=== PATIENT | female | born 1945 | race Caucasian/White ===

== ENCOUNTER 2019-07-15 15:05 | Emergency (ER) | payer MEDICARE, SELFPAY ==
--- NOTE | ~2019-07-15 | CT_ITS ---
EXAMINATION: CT lumbar spine wo con DATE: 07/15/2019 17:18 INDICATION: Low back pain post fall TECHNIQUE: Computed tomography (CT) of the lumbar spine was performed without intravenous contrast. A utomated exposure control and iterative reconstruction technique were employed. The dose-length produ ct was 608.03 mGy-cm. COMPARISON: Lumbar spine radiographs dated 03/01/2015 FINDINGS: Mild lumbar levocurvature. 1-2 mm retrolisthesis T12 on L1, L1 and L2 and L2 on L3. Vertebral body he ights are normal. No fracture. Moderate disc height loss at T11-T12 and at the right side of T12-L1. Mild disc height loss at L1-L2 and L4-L5. Bilateral adnexal cysts measuring 2.9 cm on the right and 1 .5 cm on the left. Paravertebral soft tissues are otherwise unremarkable. The following disc levels a re specifically discussed: T11-T12: Disc is bulging. There is mild right and severe left facet joint osteoarthritis. There is mi ld left neural foraminal stenosis. There is minimal central canal stenosis. T12-L1: Disc is bulging. There is mild bilateral facet joint osteoarthritis. There is mild right neur al foraminal stenosis. There is mild central canal stenosis. L1-L2: Disc is bulging. There is mild left and moderate right facet joint osteoarthritis. There is mi nimal right neural foraminal stenosis. There is mild central canal stenosis. L2-L3: Disc is bulging. There is hypertrophy of the ligamentum flavum. There is mild right and modera te left facet joint osteoarthritis. There is mild bilateral neural foraminal stenosis. There is mild to moderate central canal stenosis. L3-L4: Disc is bulging. There is hypertrophy of the ligamentum flavum. There is severe bilateral fac et joint osteoarthritis. There is mild bilateral neural foraminal stenosis. There is moderate central canal stenosis. L4-L5: Disc is bulging. There is hypertrophy of the ligamentum flavum. There is moderate right and se irasema left facet joint osteoarthritis. There is moderate bilateral neural foraminal stenosis. There is moderate central canal stenosis. L5-S1: Disc is bulging. There is severe bilateral facet joint osteoarthritis. There is no neural fora choco stenosis. There is mild central canal stenosis. IMPRESSION: 1. Mild lumbar levocurvature with moderate spondylosis. No acute osseous abnormality. Reviewed, dictated and finalized at location A. TING MACHINE OPERATOR HELPER IMPRESSION: 1. Mild lumbar levocurvature with moderate spondylosis. No acute osseous abnorm ality.
--- NOTE | ~2019-07-15 | CT_ITS ---
EXAMINATION: CT brain wo con, CT cervical spine wo con EXAM DATE: 07/15/2019 16:07 (accession [id number]), 07/15/2019 16:08 (accession [id number]) INDICATION: Head injury, fell from ladder. TECHNIQUE: Spiral CT of the head was performed without contrast. Axial, coronal and sagittal images were reviewed. Spiral CT of the cervical spine was performed without contrast. Axial images were rev iewed. Coronal and sagittal reformatted images were also reviewed. The dose-length product (DLP) fo r this examination was 605.33 (accession [id number]), 165.43 (accession [id number]) mGy-cm. The exposure was tailored according to patient size, and iterative reconstruction (ASIR) was used as additional dose reduction technique. Comparison is made to prior examination from 04/03/2014. FINDINGS: HEAD CT: There is no acute intraparenchymal hemorrhage. No evidence of intraparenchymal brain mass l esion. No evidence of acute infarction. There is mild periventricular and subcortical hypodensity, n onspecific but probably related to small vessel ischemic disease. There is moderate prominence of t he sulci and ventricles related to cerebral atrophy. There is intracranial carotid arteriosclerosis . There is no mass effect or midline shift. There is no obstructive hydrocephalus suspected. There are no extra-axial collections. There are no acute calvarial fractures. The orbits are unremarkabl e. Large posterior vertex scalp contusion, hematoma, laceration. The visualized sinuses and mastoid air cells are well aerated. CERVICAL CT: There is no evidence of acute cervical fracture. The odontoid process is intact. Pre- dens space is normal. Prevertebral soft tissue is normal. There are no soft tissue abnormalities id entified. There is no disc space widening or traumatic vertebral body subluxation suspected. Modera te disc disease C5-6 and 6-7. Mild to moderate cervical arthropathy. A detailed level by level evalu ation of spondylosis can be added as addendum if requested. IMPRESSION: 1. No acute intracranial or cervical findings. 2. Large posterior vertex scalp contusion, hematoma. Overlying laceration. 3. Chronic age related findings. Reviewed, dictated and finalized at location B. ITY ASSURANCE TESTER IMPRESSION: 1. No acute intracranial or cervical findings. 2. Large posterior vertex scalp contusion, hematoma. Overlying laceration. 3. Chronic age related findings.
[2019-07-15 15:08] VITALS: BP 137/109; PULSE 70; RESP 18; TEMP 36.2; O2SAT 99
--- NOTE | 2019-07-15 16:23 | ED.HEATRA ---
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 She states that she was chagning a light bulb outside. Pt states that she was coming down the ladder and she misstepped and fell down the last 2-3 steps. Pt states that she fell backwards and hit her head and lower back. Pt was able to ambulate after the fall. Pt also reports a headache and lower back pain, but denies syncope, neck pain, vomiting, and visual changes. Complaint: head injury Onset (ago): minute(s) Mechanism of Injury: fall Place: outdoors Loss of Consciousness: no Location of injury: occipital Radiation: none Other Injuries: none Associated symptoms: other (headache, lower back pain) Related Data Allergies Allergy/AdvReac Type Severity Reaction Status Date / Time No Known Allergies Allergy Verified 07/15/19 15:51 Review of Systems Review of Systems: All systems reviewed & are unremarkable except as noted in HPI and below Eyes: Eyes: Denies change in vision Gastrointestinal: Gastrointestinal: Denies vomiting Musculoskeletal: Musculoskeletal: Reports back pain (lower) and Denies neck pain Neurologic: Denies syncope and Reports headache(s) PMFSH Past Medical History Medical History (Updated 07/15/19 @ 18:09 by Sheng Platt MD) Anxiety Arm fracture, left Arthritis Depression Diabetes mellitus GERD (gastroesophageal reflux disease) HLD (hyperlipidemia) HTN (hypertension) Hypothyroid Right wrist fracture Seasonal allergies Sleep apnea with use of continuous positive airway pressure (CPAP) Subacromial impingement of right shoulder Surgical History Surgical History Hx of appendectomy Social History Social History Smoking status: Former smoker Smoking end date: 05/21/69 Alcohol intake: never Gender identity (if verbalized by the patient): Female Exam Const: General: healthy appearing, no acute distress and well developed Nutritional Appearance: well nourished Orientation/consciousness: patient oriented x3 (alert) and Other orientation findings (Alert) Limitations: no limitations HENMT: Head: abrasion (deep on occipital) and contusion (occipital) Ears: external ears normal General nose exam: No nasal discharge present and no epistaxis Face and sinus: face symmetric Mouth: Yes lip normal, Yes tongue normal and Yes moist mucous membranes Throat: other (No exudate, no erythema) Eyes: Conjunctivae: conjunctivae normal Sclera: sclerae normal EOM: EOMs intact bilaterally Neck: Neck: full ROM, no lymphadenopathy and supple Thyroid: thyroid normal Resp: Effort & Inspection: normal respiratory effort Auscultation: other (breath sounds equal) Cardio: Heart sounds: no gallops Back/Spine/Pelvis: Back: no CVA tenderness Thoracic/Lumbar Spine: lumbar spinal tenderness Sacrum: tenderness Coccyx: no tenderness Skin: General skin exam: normal color and no rashes or lesions noted Neuro: General: patient oriented x3 (alert), moves all extremities and no focal motor deficits Cranial nerves: Yes facial symmetry Speech: normal speech Motor exam (neuro): Motor abnormalities not present Extrem: General: normal to inspection, full ROM and no pedal edema Psych: Affect: normal affect Course Vital Signs Vital signs: Vital Signs Temperature 36.2 C L 07/15/19 15:08 Pulse Rate 70 07/15/19 15:08 Respiratory Rate 18 07/15/19 15:08 Blood Pressure 137/109 H 07/15/19 15:08 Pulse Oximetry 99 07/15/19 15:08 Temperature 36.2 C L 07/15/19 15:08 Pulse Rate 69 07/15/19 16:58 Respiratory Rate 12 02
[2019-07-15 16:58] VITALS: BP 158/74; PULSE 69; RESP 12; O2SAT 98
--- NOTE | 2019-07-15 17:09 | PC.NURSE ---
called pharmacy about pt medications. pharmacist to send up medications
--- NOTE | 2019-07-15 17:19 | PC.NURSE ---
pt back from radiology
[2019-07-15] MEDS: NAPROXEN 500 MG TABLET PO (17:39)
[2019-07-15] MEDS: methocarbamoL 750 MG TABLET PO (17:40)
[2019-07-15] MEDS: TETANUS,DIPHTHERIA,AC PERTUSSIS ADULT (0.5 ML) BOOSTRIX IM (17:44)
[2019-07-15 18:35] VITALS: BP 135/78; PULSE 75; RESP 16; O2SAT 100
--- NOTE | 2019-07-15 18:42 | PC.NURSE ---
pt's laceration still bleeding edp notified. edp stated just put a band aid on it
== END 2019-07-15 18:37 | disposition home or self-care (01) ==
PROVIDERS: Emergency Provider Emergency Medicine; PCP Family Medicine
DX: S00.03XA Contusion of scalp, initial encounter (principal); E11.9 Type 2 diabetes mellitus without complications; I10 Essential (primary) hypertension; Z87.891 Personal history of nicotine dependence; W11.XXXA Fall on and from ladder, initial encounter; Z23 Encounter for immunization
CPT/HCPCS: 70450; 72125; 72131; 90471; 90715; 99284; A9270

== ENCOUNTER 2023-06-05 11:25 | Outpatient (CLI) | payer MEDICARE, SELFPAY ==
[2023-06-05 19:57] LABS: Basophils Absolute Auto 0.1 K/mm3 (0.0-0.1); Basophils Percent Auto 1.2 % (0.2-1.2); Eosinophils Absolute Auto 0.2 K/mm3 (0-0.3); Eosinophils Percent Auto 3.3 % (0-4.4); Hematocrit 39.6 % (37.0-47.0); Hemoglobin 12.7 g/dL (12.0-15.0); Immature Granulocyte Absolute 0.03 K/mm3 (0.00-0.031); Immature Granulocyte Percent A 0.5 % (0-0.5); Lymphocytes Absolute Auto 1.27 K/mm3 (0.9-3.2); Lymphocytes Percent Auto 19.2 % (18.3-44.2); Mean Corpuscular HGB Conc 32.1 g/dl (32-36); Mean Corpuscular Hemoglobin 30.6 pg (26-34); Mean Corpuscular Volume 95.4 fl (80-100); Mean Platelet Volume 11.3 fl (7.4-10.4); Monocytes Absolute Auto 0.6 K/mm3 (0.1-0.6); Monocytes Percent Auto 8.3 % (2.6-8.5); Neutrophils Absolute Auto 4.5 K/mm3 (1.3-6.7); Neutrophils Percent Auto 67.5 % (45.5-73.1); Platelet Count Result 223 k/mm3 (150-375); Red Blood Count 4.15 M/mm3 (4.2-5.4); Red Cell Distribution Width 12.8 % (11.5-14.5); White Blood Count 6.6 K/mm3 (4.5-10.0)
[2023-06-05 19:59] LABS: Alanine Aminotransferase 21 U/L (6-35); Albumin Level 3.9 g/dL (3.5-5.1); Alkaline Phosphatase 84 U/L (38-126); Anion Gap 4 mmol/L (8-16); Aspartate Amino Transferase 26 U/L (14-36); Bilirubin,Total 0.6 mg/dL (0.2-1.3); Blood Urea Nitrogen 20 mg/dL (7-17); Calcium 9.6 mg/dL (8.4-10.2); Carbon Dioxide 31 mmol/L (22-30); Chloride 105 mmol/L (98-107); Cholesterol 241 mg/dL (0-200); Estimated Glomerular Filt Rate 48; Glucose 128 mg/dL (65-110); HDL Direct 86 mg/dL; Potassium 4.4 mmol/L (3.4-5.0); Sodium 140 mmol/L (137-145); Triglycerides 141 mg/dL (<150)
[2023-06-05 20:10] LABS: LDL Cholesterol Direct 119 mg/dL
[2023-06-05 20:12] LABS: Free T4 Free Thyroxine 0.96 ng/mL (0.78-2.19)
[2023-06-05 21:26] LABS: Hemoglobin A1C 6.8 % (<5.7)
[2023-06-07 21:05] LABS: Triiodothyronine T3 Free 2.9 pg/mL (2.3-4.2)
[2023-06-08 23:57] LABS: Vitamin D 1,25 (OH)2 Total 35 pg/mL (18-72); Vitamin D2 1,25 (OH)2 <8 pg/mL; Vitamin D3 1,25 (OH)2 35 pg/mL
== END 2023-06-05 11:26 | disposition home or self-care (01) ==
LOC: ANHGOSHLAB 11:27
PROVIDERS: PCP Nurse Practitioner Family; Visit Provider Nurse Practitioner Family
DX: E55.9 Vitamin D deficiency, unspecified (principal); I10 Essential (primary) hypertension; E11.9 Type 2 diabetes mellitus without complications; M75.41 Impingement syndrome of right shoulder; E03.9 Hypothyroidism, unspecified
CPT/HCPCS: 36415; 80053; 80061; 82652; 83036; 84439; 84443; 84481; 85025

== ENCOUNTER → 2023-06-05 11:39 | Outpatient (CLI) | payer MEDICARE, SELFPAY ==
--- NOTE | ~2023-06-05 | XR_ITS ---
XR shoulder RT min 2V DATE: 06/05/2023 12:03 INDICATION: Right shoulder impingement syndrome TECHNIQUE: 4 views COMPARISON: None FINDINGS: There is severe right glenohumeral joint space narrowing/obliteration and very prominent ri ght humeral head spurring, consistent with very severe right glenohumeral osteoarthritis. Diffuse osteopenia is noted otherwise. There is normal alignment at the acromioclavicular and glenohumeral joints. No fracture or dislocatio n, periosteal reaction or bone destruction or abnormal right shoulder soft tissue calcification is no jone. IMPRESSION: Very severe right glenohumeral osteoarthritis Osteopenia Reviewed, dictated and finalized at location L. LE SANDER OPERATOR
== END ==
PROVIDERS: PCP Nurse Practitioner Family; Visit Provider Nurse Practitioner Family
DX: M75.41 Impingement syndrome of right shoulder (principal); M19.011 Primary osteoarthritis, right shoulder; M85.811 Other specified disorders of bone density and structure, right shoulder
CPT/HCPCS: 73030

== ENCOUNTER 2023-12-04 11:12 | Outpatient (CLI) | payer MEDICARE, SELFPAY ==
[2023-12-04 13:23] LABS: Alanine Aminotransferase 18 U/L (6-35); Albumin Level 4.2 g/dL (3.5-5.1); Alkaline Phosphatase 81 U/L (38-126); Anion Gap 7 mmol/L (4-12); Aspartate Amino Transferase 32 U/L (14-36); Bilirubin,Total 0.6 mg/dL (0.2-1.3); Blood Urea Nitrogen 24 mg/dL (7-17); Calcium 9.4 mg/dL (8.4-10.2); Carbon Dioxide 28 mmol/L (22-30); Chloride 105 mmol/L (98-107); Cholesterol 284 mg/dL (0-200); Estimated Glomerular Filt Rate 48; Glucose 136 mg/dL (65-110); HDL Direct 72 mg/dL; Potassium 4.4 mmol/L (3.4-5.0); Sodium 140 mmol/L (137-145); Triglycerides 182 mg/dL (<150)
[2023-12-04 13:39] LABS: LDL Cholesterol Direct 167 mg/dL
[2023-12-04 13:58] LABS: Creatinine Urine 58.3 mg/dL
[2023-12-04 14:08] LABS: Free T4 Free Thyroxine 0.93 ng/mL (0.78-2.19); Vitamin D 25 Hydroxy 36.6 ng/mL
[2023-12-04 14:33] LABS: Microalbumin Urine Random < 6.0 mg/L (0-16.7)
[2023-12-04 14:34] LABS: MALB Creatinine Ratio < 10.3 mg/g (0-30)
[2023-12-04 14:38] LABS: Hemoglobin A1C 6.7 % (<5.7)
== END 2023-12-04 11:13 | disposition home or self-care (01) ==
PROVIDERS: PCP Family Medicine; Visit Provider Nurse Practitioner
DX: E78.5 Hyperlipidemia, unspecified (principal); E11.9 Type 2 diabetes mellitus without complications; E03.9 Hypothyroidism, unspecified; E55.9 Vitamin D deficiency, unspecified
CPT/HCPCS: 36415; 80053; 80061; 82043; 82306; 83036; 84439; 84443

== ENCOUNTER 2025-03-11 10:07 | Outpatient (CLI) | payer MEDICARE, SELFPAY ==
--- NOTE | ~2025-03-11 | US_ITS ---
EXAMINATION: US knee asp inj w image LT DATE: 03/11/2025 11:51 INDICATION: Left knee pain TECHNIQUE: The procedure including the risks and benefits was discussed with the patient. Risks discussed included bleeding and infection. The patient understood the risks and agreed to proceed. The skin overlying the posterior left knee and proximal calf was prepped and draped in usual sterile fashion. Anesthetic was administered with 1% lidocaine subcutaneously. An 18 gauge spinal needle was advanced under continuous ultrasound observation into the moderate-sized Silva's cyst. 15 mm of clear viscous straw-colored fluid was aspirated. Subsequently at the request of the referring physician injectate consisting of 2 mm of a 1:1 mixture of 1% lidocaine: 80 mg/mL Depo-Medrol for a total dosage of 80 mg Depo- Medrol was injected into the collapsed Silva's cyst under continuous ultrasound observation. The needle was removed and the entry site was cleaned and dressed. Post procedure ultrasound demonstrated no hemorrhage. FINDINGS: Ultrasound images demonstrate needle advanced into a septated 5.6 x 2.0 x 4.1 cm Silva's cyst at the left popliteal fossa with characteristic comma shape extending around the semimembranosus tendon at the proximal neck of the cyst. Subsequent images demonstrate the needle along with small amount of hypoechoic synovitis within the collapsed cyst. Final images demonstrate echogenic and shadowing injected steroid and small amount of gas within the Silva's cyst. IMPRESSION: 1. Successful Ultrasound-guided aspiration of a moderate-sized Silva's cyst at the popliteal fossa of the left knee yielding 15 mm of clear viscous straw- colored fluid. 2. Subsequent successful ultrasound-guided injection of local anesthetic and steroid into the decompressed Silva's cyst. Reviewed, dictated and finalized at location A. IMPRESSION: 1. Successful Ultrasound-guided aspiration of a moderate-sized Silva's cyst at the popliteal fossa of the left knee yielding 15 mm of clear viscous straw-colo red fluid. 2. Subsequent successful ultrasound-guided injection of local anesthetic and st eroid into the decompressed Silva's cyst.
--- OUTSIDE RECORDS SUMMARY | 2025-03-11 12:20 | XMS_ITS | Clinical Summary ---
Author Organization [facility] Address [address] [place] [address] Care Team Providers Care Teacher Vocational Training Name Role Phone Unavailable Primary Care Provider Unavailabl e Source Comments [facility],non-owned Affiliates and Associated Physician Practices is amultiple site organization consisting of ambulatory clinics and hospital sitesin [place], [place], [place] and [place]. This disclosure is being madepursuant to the Care Everywhere program and may not contain all informatio navailable regarding this patient. Last updated 18.[facility] [employer] Social History Tobacco Use Types Packs/Day Years Used Date Smoking Tobacco: Never Assessed Comments Unknown Sex and Gender Information Value Date Recorded Sex Assigned at Not on file Legal Sex Female 3:30 PM CDT Gender Identity Not on file Sexual Orientation Not on file Plan of Treatment Health Maintenance Due Date Last Done Comments BONE DENSITY TESTING 1945 DTAP/TDAP/TD VACCINES (1 - Tdap) 09/11/1962 PNEUMOCOCCAL VACCINE 50+ (1 of 1 - PCV) 09/11/1993 ZOSTER VACCINE (1 of 2) 09/11/1993 Respiratory Syncytial Virus (RSV) Vaccine Pt: or over 60 yrs (1 - 1-dose 75+ series) 09/11/2018 DEPRESSION SCREENING 05/21/2024 MEDICARE AWV CALENDAR YEAR 2024 COVID-19 VACCINE (1 - 2023-2 5 season) 2025 INFLUENZA VACCINE (#1) 2025 HEPATITIS B VACCINE Aged Out No longe r eligible based on patient's age to complete this topic HIB VACCINE Aged Out No longer eligi ble based on patient's age to complete this topic HPV VACCINE Aged Out No longer eligi ble based on patient's age to complete this topic MENINGOCOCCAL (Group B) VACC INE SHARED DECISION-MAKING Aged Out No longer eligibl e based on patient's age to complete this topic MENINGOCOCCAL GROUPS A/C/Y/W VACCINE Aged Out No longer eligible b ased on patient's age to complete this topic Insurance U[employer] MANAGED MEDICARE ADV AETNA MEDICARE ADV
--- OUTSIDE RECORDS SUMMARY | 2025-03-11 12:20 | XMS_ITS | Encounter Summary ---
Author Organization [facility] Address [address] [place] [place] [address] Care Team Providers Care Electromedical Equipment Repairer Name Role Phone Unavailable Primary Care Provider Unavailabl e Encounter Details Date Type Department Care Team (Late st Contact Info) Description 02/28/2023 Lab Requisition [facility] - DermPath Lab [address] [place] [id number] Shiva Urban MD [address] [place] [address] Social History Tobacco Use Types Packs/Day Years Used Date Smoking Tobacco: Never Assessed Comments Unknown Sex and Gender Information Value Date Recorded Sex Assigned at Not on file Legal Sex Female 3:30 PM CDT Gender Identity Not on file Sexual Orientation Not on file documented as of this encounter Plan of Treatment Not on file documented as of this encounter Procedures Procedure Name Priority Date/Time Associated Diagnosis Comments DERMATOPATHOLOGY Routine 02/27/2023 12:0 0 AM CDT documented in this encounter Results * DERMATOPATHOLOGY (02/27/2023 12:00 AM CDT) Case Report Dermatopathology Report Case: [id number] Authorizing Provider: Shiva Urban MD Collected: 02/27/2023 12:00 AM Ordering Location: [facility] DermPath Lab Received: 02/28/2023 07:21 AM Pathologist: Kasie Rojas MD Specimen: Skin, right lower back 11:45 AM CDT DERMATOPATHOLOGY LABORATORY Final Diagnosis Specimen A. 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 The specimen consists of a shave biopsy measuring 9x5x1 mm. Jar 0. 11:45 AM [facility] DERMATOPATHOLOGY LABORATORY Microscopic Description Specimen A. SKIN, right lower back: This is a compound nevus. There is a lentiginous proliferation of melanocytes between nevus nests of cells along the dermal-epidermal junction. There is underlying lamellar fibroplasia of the papillary dermis. The intradermal component is bland in appearance and matures with depth. (Compound William's Nevus) This lesion is present at the margin of the specimen. COMMENT: If this specimen is sampled from a larger lesion, these findings may not be client relations representative of the entire lesion. Clinicopathologic correlation is recommended. 11:45 AM [facility] DERMATOPATHOLOGY LABORATORY Disclaimer An external and internal positive and negative controls are appropriate for the histochemical, immunohistochemical and immunofluorescence stain(s) in this case (if any), except where stated explicitly. The performance characteristics of the stain(s) cited in this report were developed and its performance characteristic determined by the Dermatopathology Laboratory at [facility], directed by Dr. Dean Rojas. These tests need not be, and therefore are not, approved by the [place] Food and Drug Administration. The tests are used for clinical purposes. Billing Codes Specimen Charges Stain Charges 75151 1 11:45 AM T DERMATOPATHOLOGY LABORATORY Embedded Images 11:45 AM [facility] DERMATOPATHOLOGY LABORATORY Pathology/Cytolog y TISSUE SPECIMEN FROM SKIN / Unknown 02/27/2023 02/28/2023 7:21 AM CDT us Shiva Urban MD LAB - PATHOLOGY/CYTOLOGY ORDER LIT Final Result DERMATOPATHOLOGY LABORATORY [facility] - Department of Dermatology [address], [address] [phone] documented in this encounter Visit Diagnoses Not on filedocumented in this encounter
--- OUTSIDE RECORDS SUMMARY | 2025-03-11 12:20 | XMS_ITS | Clinical Summary ---
Author Organization [facility] Address [address] [address] Care Team Providers Care Factory Supervisor Name Role Phone Rosalee Alcaraz MD Primary Care Provider [phone] Allergies No known active allergies Medications levothyroxine (SYNTHROID, LEVOTHROID) 50 mcg tablet 8 Active losartan (COZAAR) 25 mg tablet 8 Active metFORMIN XR (GLUCOPHAGE XR) 500 mg 24 hr tablet 8 Active pravastatin (PRAVACHOL) 40 mg tablet 8 Active propranolol LA (INDERAL LA) 120 mg 24 hr capsule [address] (ACIPHEX) 20 mg EC tablet 8 Active sertraline (ZOLOFT) 100 mg tablet 8 Active HYDROcodone-alma taminophen (NORCO) 5-325 mg per tabletIndicatio ns:Pain Take 1 tablet by mouth every 4 (four) hours as needed for pain. 30 tablet 8 Active Additional Information Patient not taking.Reported on 01/17/2024 amLODIPine (NORVASC) 5 mg tablet 4 Active tiZANidine (ZANAFLEX) 2 mg tablet 4 Active Active Problems Problem Noted Date Diagnosed Date Breast implant deflation 02/14/2018 Overview (02/14/2018): Added automatically from request for surgery [id number] Surgical History Surgery Date Site/Laterality Comments COSMETIC SURGERY BREAST SURGERY APPENDECTOMY FRACTURE SURGERY Medical History Medical History Date Comments Diabetes 1.5, managed as type 2 (HCC) Hyperlipidemia Hypertension Sleep apnea Hypothyroidism Depression Social History Tobacco Use Types Packs/Day Years Used Date Smoking Tobacco: Never Smokeless Tobacco: Never Alcohol Use Standard Drinks/Week Comments Yes 0 (1 standard drink = 0.6 oz pur e alcohol) Comments No Sex and Gender Information Value Date Recorded Sex Assigned at Not on file Legal Sex Female 12:28 AM BUTTONHOLE MAKER HAND Gender Identity Not on file Sexual Orientation Not on file Obstetrics History Last Filed Vital Signs Vital Sign Reading Time Taken Comments Blood Pressure 137/72 01/17/2024 8:36 AM CDT Pulse 60 01/17/2024 8:36 AM CDT Temperature 36.4 C (97.5 F) 02/20/2018 9:10 AM CDT Respiratory Rate 19 02/20/2018 10:10 AM CDT Oxygen Saturation 94% 02/20/2018 10:20 AM CDT Inhaled Oxygen Concentration - - Weight 70.3 kg (155 lb) 01/17/2024 8:36 AM CDT Height 165.1 cm (5' 5) 01/17/2024 8:36 AM CDT Body Mass Index 25.79 01/17/2024 8:36 AM CDT Plan of Treatment Health Maintenance Due Date Last Done Comments Depression Screening 1945 Fall Risk Assessment 1945 Osteoporosis Screening-Bone Density Scan 1945 Hepatitis B Screening 09/11/1961 Zoster Vaccine (1 of 2) 09/11/1993 Well Visit 65+ 09/11/2008 Pneumococcal vaccine 65+ (2 of 2 - PCV) 05/21/2009 05/21/2008 Covid-19 Vaccine (3 - season) 2025, 07/27/2020 Influenza Vaccine (#1) 2025 02/06/2012, 2008 DTaP/Tdap/Td Vaccine (4 - Td or Tdap) 07/15/2029 07/15/2019, 03/20/2014, 04/05/2010 Medical Devices Implanted Type Area Television Parts Tester Device Identifier Shelf Expiration Date Model / Serial / Lot [employer] [id number] Memorygel Cohesive I 13.6cm Smooth P5.5cm High Profile Round - [id number] - [id number] Implanted:Qty : 1 on 02/20/2018 by Sajan Egan MD at [facility] Breast Right: Breast [employer] [id number] 12/10/2021 [id number] / [id number] [employer] [id number] Memorygel Cohesive I 13.6cm Smooth P5.5cm High Profile Round - [id number] - [id number] Implanted:Qty : 1 on 02/20/2018 by Sajan Egan MD at [facility] Breast Left: Breast [employer] [id number] 08/13/2021 [id number] / [id number] Explanted Type Area Television Parts Tester Device Identifier Shelf Expiration Date Model / Serial / Lot Breast Implant-Silicin e Explanted:Qty: 1 on 02/20/2018 at [facility] Breast Right: Breast [employer] / [id number] / Breast Implant- Gel Explanted:Qty: 1 on 02/20/2018 by Sajan Egan MD at [facility] Breast Left: Breast [employer] Description:Unable to read i nformation off of implant-ruptured. Not even sure if it is [place] -going by what other implant is. Insurance [facility] MEDICARE Care Teams Factory Supervisor Relationship Specialty Start Date End Date Rosalee Alcaraz MD [address] [address] PCP - General 08/15/11
--- OUTSIDE RECORDS SUMMARY | 2025-03-11 12:20 | XMS_ITS | Encounter Summary ---
Author Organization [facility] Address [address] [place] [address] Care Team Providers Care Forming Press Operator Name Role Phone Unavailable Primary Care Provider Unavailabl e Encounter Details Date Type Department Care Team (Late st Contact Info) Description 02/10/[address] [facility] DermPath Lab [address] [place] [id number] Shiva Urban MD [address] [place] [address] Social History Tobacco Use Types Packs/Day Years [...] Priority Date/Time Associated Diagnosis Comments DERMATOPATHOLOGY Routine 02/08/2021 3:33 AM CDT documented in this encounter Results * DERMATOPATHOLOGY (02/08/2021 3:33 AM CDT) Case Report Dermatopathology Report Case: [id number] Authorizing Provider: Shiva Urban MD Collected: 02/08/2021 03:33 AM Ordering Location: [facility] DermPath Lab Received: 02/10/2021 06:46 AM Pathologist: Jennifer Cohen MD Specimen: Skin, right mid back 7:06 PM CDT DERMATOPATHOLOGY LABORATORY Final Diagnosis Specimen A. SKIN, right mid back: LENTIGINOUS MELANOCYTIC NEVUS, JUNCTIONAL TYPE, IRRITATED (JUNCTIONAL MELANOCYTIC NEVUS WITH ARCHITECTURAL DISORDER) (D22.5) 7:06 PM CDT DERMATOPATHOLOGY LABORATORY at 1906 CDT Clinical History Nevus vs MM. Path# [id number]. 1 7:06 PM CDT DERMATOPATHOLOGY LABORATORY Gross Description Specimen A: Received is one formalin filled container labeled with the patient's name and designated right mid back. The specimen consists of a shave biopsy measuring [id number]. Jar 0. 1 7:06 PM CDT DERMATOPATHOLOGY LABORATORY Microscopic Description Specimen A. SKIN, right mid back: This is a junctional nevus. There is melanin pigment in the stratum corneum. There is architectural disorder characterized by a lentiginous proliferation of melanocytes between irregular nests of cells along the dermal-epidermal junction, highlighted by MART-1/Melan-A immunohistochemical staining. There is underlying fibroplasia of the papillary dermis. Original and deeper sections were reviewed. (Junctional William's Nevus or Junctional Dysplastic Nevus) 1 7:06 PM CDT DERMATOPATHOLOGY LABORATORY Disclaimer An external and internal positive and negative controls are appropriate for the histochemical, immunohistochemical and immunofluorescence stain(s) in this case (if any), except where stated explicitly. The performance characteristics of the stain(s) cited in this report were developed and its performance characteristic determined by the Dermatopathology Laboratory at [facility], directed by Dr. Dean Rojas. These tests need not be, and therefore are not, approved by the [place] Food and Drug Administration. The tests are used for clinical purposes. Billing Codes Specimen Charges Stain Charges 97721 1 40174 1 1 7:06 PM CDT DERMATOPATHOLOGY LABORATORY Embedded Images 1 7:06 PM CDT DERMATOPATHOLOGY LABORATORY Pathology/Cytolo gy TISSUE SPECIMEN FROM SKIN / Unknown 02/08/2021 3:33 AM CDT 02/10/2021 6:46 AM CDT us Shiva Urban MD LAB - PATHOLOGY/CYTOLOGY ORDER LIT Final Result DERMATOPATHOLOGY LABORATORY [facility] - Department of Dermatology [address] [phone] documented in this encounter Visit Diagnoses Not on filedocumented in this encounter
== END 2025-03-11 10:08 | disposition home or self-care (01) ==
PROVIDERS: Visit Provider Nurse Practitioner Family
DX: M71.22 Synovial cyst of popliteal space [Baker], left knee (principal)
CPT/HCPCS: 20611; J1010

== ENCOUNTER 2025-04-06 13:17 | Outpatient (CLI) | payer MEDICARE, SELFPAY ==
--- NOTE | ~2025-04-06 | DEXA_ITS ---
Bone Density Report Name: RADHA BROWNING Age: 79 Sex: Female Ethnicity: White Date of : 1945 Indication: postmenopausal; screening for osteoporosis; height loss; prior fracture; Referring Provider: JEET COLON Study: Bone densitometry was performed. Exam Date: April 06, 2025 Accession number: [id number] Bone Density: Region BMD T-score Z-score Classification AP Spine(L1-L4) 0.927 -1.1 1.7 Osteopenia Femoral Neck (Left) 0.669 -1.6 0.7 Osteopenia Total Hip (Left) 0.775 -1.4 0.8 Osteopenia Femoral Neck (Right) 0.707 -1.3 1.1 Osteopenia Total Hip (Right) 0.784 -1.3 0.8 Osteopenia Total Hip Mean 0.779 -1.4 0.8 Osteopenia World Health Organization criteria for BMD impression classify patients as: Normal (T-score at or above -1.0), Osteopenia (T-score between -1.0 and -2.5), or Osteoporosis (T-score at or below -2.5). 10-year Fracture Risk(1): Major Osteoporotic Fracture 20% Hip Fracture 4.9% Reported Risk Factors: [place] (), Neck BMD=0.669, BMI=23.9, previous fracture (1) FRAX(R) Version 3.08. Fracture probability calculated for an untreated patient. Fracture probability may be lower if the patient has received treatment. Previous Exams: -- Region Exam Age BMD T-score BMD Change BMD Change Date g/cm2 vs Baseline vs Previous -- AP Spine (L1-L4) 04/06/2025 79 0.927 -1.1 -2.3% -2.3% 03/26/2019 73 0.949 -0.9 Total Hip(Left) 04/06/2025 79 0.775 -1.4 -7.7%* -7.7%* 03/26/2019 73 0.839 -0.8 Total Hip(Right) 04/06/2025 79 0.784 -1.3 -5.4%* -5.4%* 03/26/2019 73 0.828 -0.9 -- *Denotes significance at 95% confidence level, LSC for AP Spine = 0.022 g/cm2, LSC for Total Hip = 0.027 g/cm2 Clinical Information Provided by Patient: Has had a low trauma fracture Has used the following medications: Actonel (i.e. risedronate), Fosamax (i.e. alendronate), Vitamin D, Calcium Patient maximum height was 67 Menopause Age: 45 No regular weight bearing exercise Drinks caffeinated beverages Onset of menses at age 10 Number of children 1 Impression: The patient has low bone mass, based on the Left Femoral Neck T-score. The patient has an estimated ten-year risk of hip fracture of 4.9% and an estimated ten-year risk of major fracture of 20%, based on the WHO FRAX algorithm. The patient has risk factors, including: previous fracture. The BMD for the Total Hip(Left) decreased, changing by -7.7% since the last DXA exam. The BMD for the Total Hip(Right) decreased, changing by -5.4% since the last DXA exam. Discussion: BONE DENSITY IS LOW AT ONE OR MORE SKELETAL SITES. THE PATIENT'S BMD AND CLINICAL RISK FACTORS CONTRIBUTE TO THIS PATIENT'S HIGH RISK OF FRACTURE. This patient's lowest T-score is low at one or more skeletal sites. It meets the World Health Organization's (WHO) criteria for ?low bone mass? (T-score between -1.0 and -2.5). The patient's 10-year risk of hip fracture and 10 year risk of a major osteoporotic fracture as calculated by FRAX exceeds the threshold where pharmacological therapy is recommended by the National Osteoporosis Foundation (NOF). However, all treatment decisions require clinical judgment and consideration of individual patient factors, including patient preferences, comorbidities, previous drug use, risk factors not captured in the FRAX model (e.g., frailty, falls, vitamin D deficiency, increased bone turnover, interval significant decline in bone density) and possible under or overestimation of fracture risk by FRAX. The patient should follow a healthful lifestyle (good nutrition with adequate calcium and vitamin D, and appropriate weight-bearing exercise). Follow-Up: Consider a repeat BMD and Vertebral Fracture Assessment (VFA) exam in 2 years or sooner if medically necessary, to reassess this patient's status. Reported by: RUBY on 04/06/2025 2:14:00 PM. Reviewed, dictated and finalized at location A.
== END 2025-04-06 13:18 | disposition home or self-care (01) ==
PROVIDERS: Visit Provider Nurse Practitioner Family
DX: M81.0 Age-related osteoporosis without current pathological fracture (principal); M85.89 Other specified disorders of bone density and structure, multiple sites; Z13.820 Encounter for screening for osteoporosis
CPT/HCPCS: 77080